=== PATIENT | male | born 1940 | race Caucasian/White ===

== ENCOUNTER 2018-09-04 08:57 | Inpatient (IN) ==
[2018-09-04] MEDS ORDERED: ASPIRIN 325 MG TABLET PO STA (09:30)
[2018-09-04] MEDS ORDERED: NITROGLYCERIN SL 0.4 MG TABLET SL PRN (09:30)
[2018-09-04] MEDS ORDERED: DILTIAZEM 50 MG/10 ML VIAL IV STA (09:31)
[2018-09-04 09:46] LABS: Basophils # 0.1 10*3/uL (0.0-0.2); Basophils % 1.3 % (0.0-0.8); Eosinophils # 0.3 10*3/uL (0.0-0.87); Hematocrit 54.1 VOL% (42.0-52.0); Hemoglobin 17.4 GM/DL (14.0-18.0); Immature Granulocytes % 0.5 %; Immature Granulocytes Absolute 0.04 #; Lymphocytes # 2.8 10*3/uL (1.4-4.0); Lymphocytes % 32.6 % (21.2-54.2); Mean Corpuscular HGB Conc 32.2 GM/DL (32-36); Mean Corpuscular Volume 95.1 FL (87-102); Mean Platelet Volume 13.2 FL (9.6-12.0); Monocytes % 10.7 % (1.7-12.7); Neutrophils % 51.9 % (38.7-73.9); Platelet Count 196 T/CUMM (130-400); Red Blood Count 5.69 MC/CUMM (3.8-5.5); Red Cell Distribution Width 12.8 % (9.3-17.3); White Blood Count 8.7 T/CUMM (4-12)
[2018-09-04 09:56] LABS: Calcium 9.1 MG/DL (8.5-10.1); Osmolality,Calculated 281.4 MOS/KG (273-304)
[2018-09-04] MEDS ORDERED: dilTIAZem Drip 125 MG/125 ML PREMIX IV SCH (10:00)
[2018-09-04 10:24] LABS: Apearance,Urine CLEAR (Clear); Bilirubin,Urine Negative (Negative); Blood, Urine Negative (Negative); Glucose,Urine (UA) Negative (Negative); Granular Casts,Urine 9 /LPF (0-1); Hyaline Casts,Urine 85 /LPF (0-3); Ketones,Urine 5 mg/dL (Negative); Mucus,Urine Many /LPF (Occasional); Nitrite,Urine Negative (Negative); Protein,Urine Negative; RBC,Urine 1 /HPF (0-4); Squamous Epithelial Cell,Urine Occasional /HPF (0-10); Urine Color Amber (Yellow); Urine Specific Gravity 1.023 (1.001-1.035); WBC,Urine 1 /HPF (0-6)
[2018-09-04] MEDS ORDERED: MORPHINE 4 MG/1 ML VIAL IV PRN (10:26)
[2018-09-04] MEDS ORDERED: ONDANSETRON 4 MG/2 ML VIAL IV PRN (10:26)
[2018-09-04] MEDS ORDERED: MAGNESIUM SULF RIDER 4 GM in PREMIX 1 EACH IV PRN (10:26)
[2018-09-04] MEDS ORDERED: MAGNESIUM SULF RIDER 2 GM in PREMIX 1 EACH IV PRN (10:26)
[2018-09-04] MEDS ORDERED: POTASSIUM CHLORIDE RIDER 10 MEQ in PREMIX 1 EACH IV PRN (10:49)
[2018-09-04] MEDS ORDERED: DOCUSATE SODIUM 100 MG CAPSULE PO PRN (10:49)
[2018-09-04] MEDS ORDERED: ZALEPLON 5 MG CAPSULE PO PRN (10:49)
[2018-09-04] MEDS ORDERED: ACETAMINOPHEN 325 MG TABLET PO PRN (10:49)
[2018-09-04] MEDS ORDERED: ENOXAPARIN 80 MG/0.8 ML SYRINGE SUBCUT SCH (11:30)
[2018-09-04] MEDS: SODIUM CHLORIDE 0.45% 1,000 ML IV SCH ×2 (12:51→20:49)
[2018-09-04] MEDS: PANTOPRAZOLE 40 MG TABLET PO SCH (12:59)
[2018-09-04] MEDS: DILTIAZEM 30 MG TABLET PO SCH ×3 (14:05→20:43)
[2018-09-04] MEDS: CETIRIZINE 10 MG TABLET PO SCH ×2 (15:54→20:43)
[2018-09-04] MEDS: APIXABAN 5 MG TABLET PO SCH (20:43)
[2018-09-04] MEDS: FLUTICASONE 50 MCG NASAL SPRAY 16 GM BOTTLE BOTH NARES SCH (20:44)
[2018-09-04] MEDS ORDERED: SIMVASTATIN 40 MG TABLET PO SCH (21:00)
[2018-09-04] MEDS ORDERED: LISINOPRIL 10 MG TABLET PO SCH (21:00)
[2018-09-04] MEDS ORDERED: OMEGA 3 ACID ETHYL ESTERS 1 GM CAPSULE PO SCH (21:00)
[2018-09-05 05:49] LABS: Basophils # 0.1 10*3/uL (0.0-0.2); Basophils % 1.3 % (0.0-0.8); Eosinophils # 0.5 10*3/uL (0.0-0.87); Eosinophils % 5.1 % (0.00-10.9); Hematocrit 52.5 VOL% (42.0-52.0); Hemoglobin 16.8 GM/DL (14.0-18.0); Immature Granulocytes % 0.3 %; Immature Granulocytes Absolute 0.03 #; Lymphocytes % 33.5 % (21.2-54.2); Mean Platelet Volume 13.8 FL (9.6-12.0); Monocytes % 11.5 % (1.7-12.7); Neutrophils % 48.3 % (38.7-73.9); Platelet Count 182 T/CUMM (130-400); Red Blood Count 5.47 MC/CUMM (3.8-5.5); Red Cell Distribution Width 12.9 % (9.3-17.3)
[2018-09-05 06:19] LABS: Calcium 8.6 MG/DL (8.5-10.1)
[2018-09-05 06:22] LABS: Risk Ratio 2.73; VLDL CHOLESTEROL 32.8 MG/DL
[2018-09-05 08:38] VITALS: BP 119/70
[2018-09-05] MEDS: FLUTICASONE 50 MCG NASAL SPRAY 16 GM BOTTLE BOTH NARES SCH (09:50)
[2018-09-05] MEDS: PANTOPRAZOLE 40 MG TABLET PO SCH (09:51)
[2018-09-05] MEDS: CETIRIZINE 10 MG TABLET PO SCH (09:51)
[2018-09-05] MEDS: APIXABAN 5 MG TABLET PO SCH (09:51)
[2018-09-05] MEDS: DILTIAZEM 30 MG TABLET PO SCH (09:51)
[2018-09-05] MEDS ORDERED: ASCORBIC ACID 500 MG TABLET PO SCH (21:00)
[2018-09-05] MEDS ORDERED: CARVEDILOL 3.125 MG TABLET PO SCH (21:00)
== END 2018-09-05 10:30 | disposition home or self-care (01) | DRG 309 ==
LOC: N.ED 08:57 → N.EDINP 10:26 → N.TELEN 12:06
PROVIDERS: ADMIT Internal Medicine Cardiovascular Disease; ATTEND Internal Medicine Cardiovascular Disease